=== PATIENT | female | born 1945 | race Caucasian/White ===

== ENCOUNTER 2023-09-28 13:00 | Emergency (ER) | payer MEDICARE, SELFPAY ==
[2023-09-28 13:15] VITALS: BP 175/91
[2023-09-28] MEDS: TYLENOL 650 MG PO (15:29)
[2023-09-28] MEDS: MOTRIN 600 MG PO (16:36)
--- NOTE | 2023-09-28 16:57 | ED.GENMED ---
History of Present Illness
General
Chief Complaint: Fall
Source: patient
Exam Limitations: none
Time Seen by Provider: 09/28/23 13:59
Nursing documentation reviewed up to this point in time: agreed with
Travel History
Have you had any contact with someone who has COVID-19?: No
Do you have any symptoms of coronavirus? Fever > 100 degrees, chills, cough, shortness of breath, sore throat, loss of taste or smell, muscle aches, or headache?: No
History of Present Illness
History of Present Illness:
77-year-old female with past medical history of hypertension hyperlipidemia, diabetes presenting to the emergency department today with concerns of fall. She claims that she came in for outpatient x-rays of her back because she was having ongoing
back and hip discomfort as an outpatient over the past few weeks. She claims that her right leg gave out and she fell hitting the front of her head also broke her fall with her arms. Initially had some bleeding but this was controlled prior to my
assessment. Denies loss of consciousness. Ongoing hip and back pain.
Past History
Past History
ED Past Medical History: HTN, Hypercholesterolemia and NIDDM
ED Past Surgical History: Cardiac and Cholecystectomy
Social History
Tobacco: Non-smoker
Alcohol: None
Drug: None
Personal: Single
Living: with family
Family History
Family History: Other (reviewed and non-contributory)
Review of Systems
Review of Systems
Allergies reviewed?: Yes
All Other Systems: ROS reviewed and negative except as documented in HPI and ROS
Phy Exam
Physical Exam
Physical Exam:
GENERAL: Alert , in no apparent distress
EYE: pupils equal and reactive
NECK: Supple, no significant adenopathy.
ENT: Superficial laceration abrasion to the right anterior forehead, roughly 1 cm in length surrounded by abrasion, o/p clr, mmm.
CARDIAC: Regular rate and rhythm .
LUNGS: Clear breath sounds bilaterally, no acute respiratory distress, no wheezes/rales/rhonchi
ABDOMEN: Soft, without focal tenderness, no r/g, no cvat
NEUROLOGICAL: Alert and oriented, no focal neuro deficits
SKIN: Warm and dry, skin intact.
MUSCULOSKELETAL: No edema, well perfused. Able to ambulate does have discomfort to the right hip when doing so.
PSYCH: Normal and appropriate interaction.
Course
Orders/Labs/Results
Orders:
Orders
09/28/23 14:50
CT Head W/o Iv Contrast Urgent
Comment:
Reason For Exam: fall hit head
Tetanus/Diphth/Acelpertussis [Adacel] 0.5 ml IM .ONCE ONE
Hip, Right 2-3 Views [CR Hip - RT w/wo Pel 2-3 Vw*] Urgent
Comment:
Reason For Exam: hip pain fall
Include a pelvis x-ray?: Yes
Lumbar Spine Complete, 4 View [CR Lumbar Spine Comp Min 4 Vw*] Urgent
Comment:
Reason For Exam: lbp fall
09/28/23 14:52
Acetaminophen [Tylenol] 650 mg PO NOW STA
09/28/23 16:31
Ibuprofen [Motrin] 600 mg .ROUTE .STK-MED ONE
09/28/23 16:35
Ibuprofen [Motrin] 600 mg PO NOW STA
09/28/23 17:54
Prednisone [Deltasone] 40 mg PO NOW STA
Vital Signs
Initial and Last Documented VS:
Initial Vital Signs
Temp Pulse Resp BP Pulse Ox
98.4 F 64 18 175/91 99
09/28/23 13:15 09/28/23 13:15 09/28/23 13:15 09/28/23 13:15 09/28/23 13:15
Last Documented Vital Signs
Temp Pulse Resp BP Pulse Ox
98.4 F 64 18 175/91 99
09/28/23 13:15 09/28/23 13:15 09/28/23 13:15 09/28/23 13:15 09/28/23 13:15
Procedures
Laceration Closure
Right Face:
Status of Wound: clean
Size of Wound in cm: 1
Description of Wound Edges: ragged and surrounded by abrasion
Preparation: cleaned with saline
Revision/Debridement: routine- no revision and irrigate-direct pressure
Wound exploration: explored to base- no FB and no tendon involvement
Type of Closure: Dermabond-skin glue
MDM/Problems Addressed
MDM/Problems Addressed:
77-year-old female presenting to the emergency department today with concerns of ground-level fall after her right hip gave out while walking into the hospital for outpatient x-rays. Has ongoing hip and back discomfort since. Also hit the right
forehead she denies any loss of consciousness. CT scan was performed that did not show any signs of intracranial injury no bleed. Superficial laceration to the right forehead was closed with Dermabond. X-rays without emergent findings. Patient
appears stable for outpatient follow-up with orthopedics. Return precautions given.
*Critical Care Note
Total Time (30-74mins, 75-104mins- exclusive of procedures): Not Applicable
ED Attending Note
-
Portions of this chart may have been created with voice recognition software.� Occasional wrong word or��sound alike� substitutions may have occurred due to the inherent limitations of voice recognition software.
Discharge Plan
Departure
Patient Disposition: Home (Routine Discharge)
Date of Disposition: 09/28/23
Time of Disposition: 17:54
Patient with high blood pressure during this ER visit?: No
Condition: Good
Covid-19: Not Applicable
Discharge Problem:
Acute hip pain, Fall, Forehead laceration
Instructions: Laceration Repair With Glue (DC)
Prescriptions:
New
meloxicam 7.5 mg tablet
7.5 mg PO DAILY 14 Days Qty: 14 0RF
prednisone 20 mg tablet
40 mg PO DAILY 3 Days Qty: 6 0RF
No Action
atorvastatin 10 mg Tablet
10 mg PO HS
metoprolol succinate 100 mg tablet extended release 24 hr
100 mg PO HS
therapeutic multivitamin Tablet
1 tab PO HS
ropinirole 0.5 mg Tablet
0.5 mg PO BID@1800,2200
naproxen sodium 220 mg Tablet
220 mg PO HS
lisinopril 40 mg tablet
40 mg PO HS
magnesium 200 mg Tablet
200 mg PO HS
eszopiclone 2 mg tablet
2 mg PO HS
trazodone 50 mg tablet
50 mg PO HSPRN PRN (Reason: insomnia)
metformin 500 mg Tablet
500 mg PO BID@0800,1700 Qty: 0 0RF
amlodipine 5 mg Tablet
5 mg PO DAILY Qty: 30 0RF
Referrals:
Alex London MD [Family Provider] -
Activity Restrictions/Additional Instructions:
You came to the emergency department today with concerns of hip and back discomfort also of skin injury to the right forehead. This was closed with Dermabond. Please keep the area clean and the Dermabond otherwise fall off on its own after a week
or so. Otherwise please take the prescribed medications help with symptoms. Follow-up closely with the orthopedic doctor. Return to the emergency department for any worsening, new or concerning symptoms.
Interventions
Interventions:
*Risk Screen - Suicide Last Done: 09/28/23 15:51
*General Assessment Last Done: 09/28/23 15:51
*Neglect/Abuse Screening Last Done: 09/28/23 15:51
*ED COVID-19 Vaccine History Last Done: 09/28/23 15:51
ED-Musculoskeletal Assessment Last Done: 09/28/23 15:51
ED- Neurological Assessment Last Done: 09/28/23 15:51
ED-Skin Assessment Last Done: 09/28/23 15:51
Discharge Date and Time
Print Language: GEORGIAN
[2023-09-28] MEDS: DELTASONE 40 MG PO (18:12)
[2023-09-28 18:28] VITALS: BP 157/91
== END 2023-09-28 18:34 | disposition home or self-care (01) ==
LOC: EMR 13:00
PROVIDERS: EMERGENCY PHYSICIAN Emergency Medicine; FAMILY PHYSICIAN Family Medicine
DX: S01.81XA Laceration without foreign body of other part of head, initial encounter (principal); M25.551 Pain in right hip; W19.XXXA Unspecified fall, initial encounter; I10 Essential (primary) hypertension; E78.00 Pure hypercholesterolemia, unspecified; E11.9 Type 2 diabetes mellitus without complications
CPT/HCPCS: 99284; 12011; 70450; 72110; 73502; 90715

== ENCOUNTER → 2023-11-08 13:23 | Outpatient (REF) | payer MEDICARE, SELFPAY | LOC: MRI 13:23 | PROVIDERS: ATTENDING PHYSICIAN Physician Assistant Surgical; FAMILY PHYSICIAN Family Medicine | DX: M54.50 Low back pain, unspecified (principal); M41.86 Other forms of scoliosis, lumbar region; M47.816 Spondylosis without myelopathy or radiculopathy, lumbar region; M43.16 Spondylolisthesis, lumbar region | CPT/HCPCS: 72148 ==

== ENCOUNTER 2023-11-29 01:56 | Emergency (ER) | payer MEDICARE, SELFPAY ==
--- NOTE | 2023-11-29 03:46 | ED.GENMED ---
History of Present Illness
<LOY Santiago - Last Filed: 11/29/23 06:42>
General
Chief Complaint: Abdominal Pain
Source: patient
Time Seen by Provider: 11/29/23 03:45
History of Present Illness
History of Present Illness:
78 year old female with hx of HTN, NIDDM, chronic lower back pain, with pacemaker who presents with sudden onset epigastric pain that began at 0100 tonight. Pt states the pain woke her up from sleep. She took tums x3 tabs because she thought it was
indigestion. Pain was initially 8/10 in strength, but currently 3/10. Pain is intermittent. Pain is described as a squeezing pain and radiates to the L back. She has not had this pain before. She has associated nausea and dizziness at onset. States
she had SOB initially. She states sitting forward makes the pain worse and causes dizziness. Reports having a [employer] hamburger at 1900 Monday. Last BM was yesterday and was loose. Denies vomiting, diarrhea, constipation, chest pain, SOB, head
ache, fevers/chills, dysuria, hematuria, increased belching.
Pt with pacemaker for an episode of syncope when her passed and due to generalized weakness.
Past History
<LOY Santiago - Last Filed: 11/29/23 06:42>
Past History
ED Past Medical History: HTN, Hypercholesterolemia and NIDDM
ED Past Surgical History: Cardiac and Cholecystectomy
Social History
Tobacco: Non-smoker
Alcohol: None
Drug: None
Personal: Single
Living: with family
Family History
Family History: Other (reviewed and non-contributory)
Review of Systems
<LOY Santiago - Last Filed: 11/29/23 06:42>
Review of Systems
Allergies reviewed?: Yes
All Other Systems: ROS reviewed and negative except as documented in HPI and ROS
Constitutional: Reports no symptoms
EENT: Reports no symptoms
Respiratory: Reports trouble breathing
Cardiac: Reports no symptoms
ABD/GI: Reports abdominal pain, nausea and vomiting
: Reports no symptoms
Musculoskeletal: Reports no symptoms
Skin: Reports no symptoms
Neurological: Reports dizzy and headache
Endocrine: Reports no symptoms
Hematologic/Lymphatic: Reports no symptoms
Psychiatric: Reports no symptoms
Phy Exam
<LOY Santiago - Last Filed: 11/29/23 06:42>
General Physical Exam
General Presentation: no apparent distress and other (uncomfortable appearing)
General age: appears stated age
General Skin: warm and dry
General Habitus: normal
General Mental: alert
General Hydration: appears well hydrated
Cardiovascular Exam
Cardiovascular Exam: regular rate/rhythm, no edema, no gallop and no murmur
Pulmonary Exam
Pulmonary Exam: lungs clear, no respiratory distress, no rales, no crackles, no rhonchi, no wheezing and no cough
Gastrointestinal Exam
Gastrointestinal Exam: normal bowel sounds, no pulsatile mass and distended (mild)
Palpation: left upper quadrant: Moderate tenderness and left lower quadrant: Moderate tenderness
Skin Exam
Skin Exam: normal color and warm/dry
Psychiatric Exam
Psychiatric Exam: normal mood/affect
Course
<LOY Santiago - Last Filed: 11/29/23 06:42>
Orders/Labs/Results
Orders:
Orders
11/29/23
Electrocardiogram (*1) Stat
Reason for Study: Chest Pain
11/29/23 03:00
Complete Blood Count/With Diff Routine
Comprehensive Metabolic Panel Routine
Lactic Acid Routine
Lipase Routine
PTT Routine
Prothrombin Time Routine
Troponin I Routine
Urinalysis Reflex To Culture Routine
Urine Microscopic Reflex Cult Routine
Urine Culture Routine
REJI Source: U
Specimen Description:
11/29/23 04:16
CT Abd/pelvis W Iv Cont Urgent
Comment:
Reason For Exam: upper abd pain
11/29/23 06:21
EKG [Electrocardiogram (*1)] Urgent
Reason for Study: Chest Pain
11/29/23 06:34
Troponin I Urgent
11/29/23 06:50
Fosfomycin [Monurol] 3 gm PO ONCE ONE
Abnormal Lab Results
11/29/23
03:00
RBC 3.79 L 10^6/uL
(4.20-5.40)
Hgb 11.8 L g/dL
(12.0-16.0)
Hct 36.1 L %
(37.0-47.0)
MCH 31.1 H pg
(27.0-31.0)
MCHC 32.7 L g/dL
(33.0-37.0)
MPV 12.6 H fL
(7.4-10.4)
Absolute Monos (auto) 0.7 H 10^3/uL
(0.1-0.6)
BUN 55 H mg/dl
(7-17)
Glucose 156 H mg/dl
(70-99)
AST 215 H U/L
(14-36)
ALT 144 H U/L
(0-35)
Lipase 360 H U/L
(23-300)
Urine Nitrite (Reflex) Positive A
(Negative)
Leukocyte Esterase Rfl 2+ A
(Negative)
Urine WBC (Reflex) 21-25 A /HPF
(0-5)
Urine Bacteria (Reflex) Many A
(Negative)
11/29/23 03:00
11/29/23 03:00
Vital Signs
Initial and Last Documented VS:
Initial Vital Signs
Pulse Ox
94
11/29/23 04:32
Last Documented Vital Signs
Pulse Resp BP Pulse Ox
67 14 160/82 98
11/29/23 05:53 11/29/23 05:53 11/29/23 05:53 11/29/23 05:53
<Chun Humphrey, DO - Last Filed: 11/29/23 07:53>
Orders/Labs/Results
Orders:
Orders
11/29/23
Electrocardiogram (*1) Stat
Reason for Study: Chest Pain
11/29/23 03:00
Complete Blood Count/With Diff Routine
Comprehensive Metabolic Panel Routine
Lactic Acid Routine
Lipase Routine
PTT Routine
Prothrombin Time Routine
Troponin I Routine
Urinalysis Reflex To Culture Routine
Urine Microscopic Reflex Cult Routine
Urine Culture Routine
REJI Source: U
Specimen Description:
11/29/23 04:16
CT Abd/pelvis W Iv Cont Urgent
Comment:
Reason For Exam: upper abd pain
11/29/23 06:21
EKG [Electrocardiogram (*1)] Urgent
Reason for Study: Chest Pain
11/29/23 06:34
Troponin I Urgent
11/29/23 06:50
Fosfomycin [Monurol] 3 gm PO ONCE ONE
Abnormal Lab Results
11/29/23
03:00
RBC 3.79 L 10^6/uL
(4.20-5.40)
Hgb 11.8 L g/dL
(12.0-16.0)
Hct 36.1 L %
(37.0-47.0)
MCH 31.1 H pg
(27.0-31.0)
MCHC 32.7 L g/dL
(33.0-37.0)
MPV 12.6 H fL
(7.4-10.4)
Absolute Monos (auto) 0.7 H 10^3/uL
(0.1-0.6)
BUN 55 H mg/dl
(7-17)
Glucose 156 H mg/dl
(70-99)
AST 215 H U/L
(14-36)
ALT 144 H U/L
(0-35)
Lipase 360 H U/L
(23-300)
Urine Nitrite (Reflex) Positive A
(Negative)
Leukocyte Esterase Rfl 2+ A
(Negative)
Urine WBC (Reflex) 21-25 A /HPF
(0-5)
Urine Bacteria (Reflex) Many A
(Negative)
11/29/23 03:00
11/29/23 03:00
Vital Signs
Initial and Last Documented VS:
Initial Vital Signs
Pulse Ox
94
11/29/23 04:32
Last Documented Vital Signs
Pulse Resp BP Pulse Ox
67 14 160/82 98
11/29/23 05:53 11/29/23 05:53 11/29/23 05:53 11/29/23 05:53
<LOY Santiago - Last Filed: 11/29/23 06:42>
MDM/Problems Addressed
Differential Diagnosis Includes:
pancreatitis, gastritis, choledocholithiasis, ulcer, SBO, ACS
MDM/Problems Addressed:
78 year old female who presents with epigastric pain radiating to the back that began at 0100 tonight.
Chronic conditions affecting care: DM, HTN, Arrhythmia and Previous abdomnial surgery
<LOY Santiago - Last Filed: 11/29/23 06:42>
*Critical Care Note
Total Time (30-74mins, 75-104mins- exclusive of procedures): Not Applicable
<Chun Humphrey DO - Last Filed: 11/29/23 07:53>
Update Note
Update Note:
CT abdomen and pelvis with IV contrast
IMPRESSION:
Stomach decompressed. No bowel obstruction or diverticulitis. Appendix is not visualized.
Mild cardiomegaly. Status post cholecystectomy. No pancreatitis. No obstructing renal stone. Rule abdominal aorta is of normal caliber with diffuse atherosclerotic disease.
ED Attending Note
<LOY Santiago - Last Filed: 11/29/23 06:42>
-
Portions of this chart may have been created with voice recognition software.� Occasional wrong word or��sound alike� substitutions may have occurred due to the inherent limitations of voice recognition software.
<Chun Humphrey DO - Last Filed: 11/29/23 07:53>
ED Attending Note
Patient seen and examined by attending physician: Yes
I performed the substantive portion of visit, reviewed & personally made and approve the management plan that is documented in note by myself or GUS.: Yes
ED Attending Note:
Pleasant 78-year-old female that presents with epigastric pain. This pain awakened her from sleep around 1 in the morning. She did try taking an antacid [id number] without any relief. Initially pain was severe and accompanied by shortness
of breath. She rated her pain at 8 out of 10 initially but states that upon arrival to the emergency department her pain is 3 out of 10. Patient denies nausea, vomiting, diarrhea, constipation. Patient states that she had a loose bowel movement
yesterday. Patient was seen in conjunction with the PA student. I have reviewed and agree with the history and treatment plan presented. On my independent physical exam, patient is awake, alert, and oriented x3
Discharge Plan
Departure
Patient Disposition: Home (Routine Discharge)
Date of Disposition: 11/29/23
Time of Disposition: 07:42
Patient with high blood pressure during this ER visit?: Yes
Condition: Good
Discharge Problem:
Abdominal pain, Acute UTI
Instructions: Urinary Tract Infection, Adult ED, BLOOD PRESSURE
Prescriptions:
No Action
atorvastatin 10 mg Tablet
10 mg PO HS
metoprolol succinate 100 mg tablet extended release 24 hr
100 mg PO HS
therapeutic multivitamin Tablet
1 tab PO HS
ropinirole 0.5 mg Tablet
0.5 mg PO BID@1800,2200
naproxen sodium 220 mg Tablet
220 mg PO HS
lisinopril 40 mg tablet
40 mg PO HS
magnesium 200 mg Tablet
200 mg PO HS
eszopiclone 2 mg tablet
2 mg PO HS
trazodone 50 mg tablet
50 mg PO HSPRN PRN (Reason: insomnia)
metformin 500 mg Tablet
500 mg PO BID@0800,1700 Qty: 0 0RF
amlodipine 5 mg Tablet
5 mg PO DAILY Qty: 30 0RF
meloxicam 7.5 mg tablet
7.5 mg PO DAILY 14 Days Qty: 14 0RF
prednisone 20 mg tablet
40 mg PO DAILY 3 Days Qty: 6 0RF
Referrals:
Lorrie Naik, [Active] - As needed
Alex London MD [Family Provider] -
Activity Restrictions/Additional Instructions:
It was a pleasure meeting you and taking part in your care. We hope for your continued healing and wellness.
Please read discharge instructions in their entirety. However, they are for general education and may not describe your exact diagnosis at discharge. Information on your ER visit and medical conditions were discussed with you along with appropriate
follow up information...
If indicated, please take your medications as instructed and indicated on discharge paperwork.
Please schedule a follow up appointment as directed. Call to schedule an appointment
Please return to the emergency department with ANY change in, persisting, or worsening of symptoms. If any of your symptoms do not improve, or persist, or become more severe within 6-12 hours, please return to the emergency department for further
care.
Please return to the emergency department if you develop a headache, neck pain/stiffness, fever greater than 100.4F, chest pain, shortness of breath, persistent nausea, vomiting, slurred speech, difficulty walking, numbness/tingling, weakness, signs
of infection or any other symptoms that are worrisome to you.
If you have any questions or concerns please do not hesitate to call the Hospital at or E-mail me directly at [email or web address]
Interventions
Interventions:
*General Assessment Last Done: 11/29/23 04:32
ED- Fall Risk Assessment Last Done: 11/29/23 04:32
*ED COVID-19 Vaccine History Last Done: 11/29/23 04:32
[id number] Assessment Last Done: 11/29/23 04:32
Discharge Date and Time
Print Language: SAUDI ARABIAN
--- NOTE | 2023-11-29 03:47 | DOWNTIME ---
There was a [employer] Downtime on 10/24/2023 from 0100 to 10/25/2023 at 0338. Downtime documentation of patient's care, including medication administrations, has been reconciled in the electronic record per guidelines. Refer to the
patient's paper chart under the miscellaneous tab to see printed paper medication records and downtime forms.
[2023-11-29 03:55] LABS: ALT (SGPT) 144 U/L (0-35); AST (SGOT) 215 U/L (14-36); Alkaline Phosphatase 104 U/L (38-126); Blood Urea Nitrogen 55 mg/dl (7-17); Calcium 9.9 mg/dl (8.4-10.2); Carbon Dioxide 26 mmol/L (22-30); Chloride 105 mmol/L (98-107); Glucose 156 mg/dl (70-99); Lactic Acid 1.8 mmol/L (0.7-2.0); Lipase 360 U/L (23-300); Potassium 4.1 mmol/L (3.5-5.1); Sodium 140 mmol/L (135-145); Total Protein 6.3 g/dl (6.3-8.2); Troponin I 0.016 ng/ml; eGFR 56.95
[2023-11-29 03:59] LABS: % Basophils 0.6 % (0-2); % Eosinophils 3.3 % (0-6); % Immature Granulocytes 0.2 % (0-0.5); % Lymphocytes 34.5 % (20.5-51.1); % Monocytes 8.7 % (1.7-9.3); % Neutrophils 52.7 % (42.2-75.2); Absolute Basophils 0.1 10^3/uL (0-0.2); Absolute Eosinophils 0.3 10^3/uL (0-0.7); Absolute Lymphocytes 2.8 10^3/uL (1.2-3.4); Absolute Monocytes 0.7 10^3/uL (0.1-0.6); Absolute Neutrophils 4.3 10^3/uL (1.4-6.5); Hematocrit 36.1 % (37.0-47.0); Hemoglobin 11.8 g/dL (12.0-16.0); Mean Corp Hgb Conc. 32.7 g/dL (33.0-37.0); Mean Corpuscular Hgb 31.1 pg (27.0-31.0); Mean Corpuscular Volume 95.3 fL (81.0-99.0); Mean Platelet Volume 12.6 fL (7.4-10.4); Nucleated Red Blood Cells % 0 %; Platelet Count 173 10^3/uL (130-400); Red Blood Cell Count 3.79 10^6/uL (4.20-5.40); White Blood Cell Count 8.2 10^3/uL (4.8-10.8)
[2023-11-29 04:04] LABS: Urine Character Clear (Clear); Urine Color Yellow; Urine Leukocyte 2+ (Negative)
[2023-11-29 04:05] LABS: Urine Albumin Negative (Neg - Trace); Urine Bilirubin Negative (Negative); Urine Glucose Negative (Negative); Urine Ketone Negative (Negative); Urine Nitrite Positive (Negative); Urine Occult Blood Negative (Negative); Urine Urobilinogen Negative (Neg - 1+)
[2023-11-29 04:06] LABS: Urine Bacteria Many (Negative); Urine Hyaline Cast 0-2 /LPF (0-2); Urine Red Blood Cell 0-2 /HPF (0-2); Urine Squamous Cell 21-25 /LPF (Few); Urine White Cell 21-25 /HPF (0-5)
[2023-11-29 04:07] LABS: INR 1.01; PT 13.1 Sec (11.4-14.6)
[2023-11-29 04:52] VITALS: BMI 31.8
[2023-11-29 04:53] VITALS: BP 154/80
[2023-11-29 05:53] VITALS: BP 160/82
[2023-11-29] MEDS: MONUROL 3 GM PO (07:05)
[2023-11-29 07:11] LABS: Troponin I 0.015 ng/ml
[2023-11-30 07:54] LABS: Glucose - Point of Care 161 mg/dl (70-99)
== END 2023-11-29 08:29 | disposition home or self-care (01) ==
LOC: EMR 01:56
PROVIDERS: EMERGENCY PHYSICIAN Student in an Organized Health Care Education/Training Program; FAMILY PHYSICIAN Family Medicine
DX: N39.0 Urinary tract infection, site not specified (principal); R10.13 Epigastric pain; R11.2 Nausea with vomiting, unspecified; R42 Dizziness and giddiness; R06.02 Shortness of breath; R51.9 Headache, unspecified; R19.7 Diarrhea, unspecified; I10 Essential (primary) hypertension; E11.9 Type 2 diabetes mellitus without complications; G89.29 Other chronic pain; M54.50 Low back pain, unspecified; E78.00 Pure hypercholesterolemia, unspecified; Z79.84 Long term (current) use of oral hypoglycemic drugs; Z95.0 Presence of cardiac pacemaker; Z90.49 Acquired absence of other specified parts of digestive tract; Z88.1 Allergy status to other antibiotic agents
CPT/HCPCS: 99285; 74177; 80053; 81003; 81015; 82962; 83605; 83690; 84484; 85025; 85610; 85730; 87077; 87086; 93005; Q9967

== ENCOUNTER 2024-09-25 18:04 | Emergency (ER) | payer MEDICARE, SELFPAY ==
[2024-09-25 18:04] VITALS: BMI 30.7
[2024-09-25 18:09] VITALS: BP 202/109
[2024-09-25 20:00] VITALS: BP 161/74
--- NOTE | 2024-09-25 20:19 | ED.GENMED ---
History of Present Illness
General
Chief Complaint: Fall
Source: patient
Exam Limitations: none
Time Seen by Provider: 09/25/24 20:09
History of Present Illness
History of Present Illness:
78yo right hand dominant female with a history of hypertension, hyperlipidemia, and pacemaker presenting with her daughter for evaluation of a left shoulder injury that occurred around 5pm this evening. Patient tripped and grabbed onto a railing
with her left arm. She states her arm bend backwards and she felt a pop. She did not actually fall. No head strike or LOC. She has been unable to move her shoulder since then. She also reports some paresthesias in her fingers.
Past History
Past History
ED Past Medical History: HTN, Hypercholesterolemia and NIDDM
ED Past Surgical History: Cardiac and Cholecystectomy
Social History
Tobacco: Non-smoker
Alcohol: None
Drug: None
Personal: Single
Living: with family
Family History
Family History: Other (reviewed and non-contributory)
Phy Exam
General Physical Exam
General Presentation: well appearing and no apparent distress
General age: appears stated age
General Skin: warm and dry
General Habitus: normal
General Mental: alert
ENT Exam
ENT Exam: normocephalic
Pulmonary Exam
Pulmonary Exam: no respiratory distress
Neurological Exam
Neurological Exam: alert
Ha Coma Scale
Eye Opening: Spontaneous
Verbal Response: Oriented
Motor Response: Obeys Commands
GCS Total Score: 15
Musculoskeletal Exam
Musculoskeletal Exam: other (L shoulder: Arm held in flexion and adduction. No deformity noted. +Tenderness to humerus. Unable to range shoulder/elbow due to pain. ROM of wrist intact. Compartments soft. 2+ radial pulse. Motor function intact in
radial, ulnar, and median nerve distributions. )
Skin Exam
Skin Exam: normal color and warm/dry
Psychiatric Exam
Psychiatric Exam: anxious
Course
Orders/Labs/Results
Orders:
Orders
09/25/24 18:13
CR Shoulder, Trauma - Left Urgent
Reason For Exam: injury
09/25/24 20:17
Ice Pack-Treatment DIRECTED
Location: L arm
Sling Left-Treatment ONCE
Oxycodone/Acetaminophen [Percocet 5/325] 1 tablet PO NOW STA
CR Humerus - Left Min 2 Views* Urgent
Comment:
Reason For Exam: injury
Vital Signs
Initial and Last Documented VS:
Initial Vital Signs
Temp Pulse Resp BP Pulse Ox
98.2 F 89 20 202/109 98
09/25/24 18:09 09/25/24 18:09 09/25/24 18:09 09/25/24 18:09 09/25/24 18:09
Last Documented Vital Signs
Temp Pulse Resp BP Pulse Ox
98.2 F 65 18 138/74 99
09/25/24 18:09 09/25/24 22:00 09/25/24 22:00 09/25/24 22:00 09/25/24 22:00
MDM/Problems Addressed
Differential Diagnosis Includes:
78yoF here with a L shoulder injury. [place] a pop after grabbing onto a railing. Now unable to range shoulder joint. No deformity on exam and compartments are soft. LUE is neurovascularly intact. Differential diagnosis includes: fracture, dislocation,
rotator cuff injury, muscular injury
X-rays of shoulder obtained in triage are negative for acute osseous abnormalities. Humerus x-rays added which are also negative. She was placed in a sling with improvement in her pain. Supportive care discussed. Advised f/u with orthopedics for
further care. She was encouraged to attempt to range shoulder to help prevent adhesive capsulitis. Patient discharged in stable condition with her daughter.
*Critical Care Note
Total Time (30-74mins, 75-104mins- exclusive of procedures): Not Applicable
ED Attending Note
-
Portions of this chart may have been created with voice recognition software.� Occasional wrong word or��sound alike� substitutions may have occurred due to the inherent limitations of voice recognition software.
Discharge Plan
Departure
Patient Disposition: Home (Routine Discharge)
Date of Disposition: 09/25/24
Time of Disposition: 21:50
Patient with high blood pressure during this ER visit?: Yes
Discharge Problem:
Injury of left shoulder
Instructions: Shoulder pain - ED discharge instructions
Prescriptions:
No Action
atorvastatin 10 mg Tablet
10 mg PO HS
metoprolol succinate 100 mg tablet extended release 24 hr
100 mg PO HS
therapeutic multivitamin Tablet
1 tab PO HS
ropinirole 0.5 mg Tablet
0.5 mg PO BID@1800,2200
naproxen sodium 220 mg Tablet
220 mg PO HS
lisinopril 40 mg tablet
40 mg PO HS
magnesium 200 mg Tablet
200 mg PO HS
eszopiclone 2 mg tablet
2 mg PO HS
trazodone 50 mg tablet
50 mg PO HSPRN PRN (Reason: insomnia)
metformin 500 mg Tablet
500 mg PO BID@0800,1700 Qty: 0 0RF
amlodipine 5 mg Tablet
5 mg PO DAILY Qty: 30 0RF
meloxicam 7.5 mg tablet
7.5 mg PO DAILY 14 Days Qty: 14 0RF
prednisone 20 mg tablet
40 mg PO DAILY 3 Days Qty: 6 0RF
Referrals:
Jon Cortez MD [Active] -
UNKNOWN - PT DOES,NOT KNOW [Family Provider] -
Activity Restrictions/Additional Instructions:
Wear sling for comfort. Apply ice to affected area. Take Tylenol as needed for pain.
Please call tomorrow to schedule follow-up with orthopedics.
Interventions
Interventions:
*Risk Screen - Suicide Last Done: 09/25/24 20:12
*General Assessment Last Done: 09/25/24 18:09
*Neglect/Abuse Screening Last Done: 09/25/24 20:12
*ED- Fall Risk Assessment Last Done: 09/25/24 20:12
*Nursing Disposition Last Done: 09/25/24 22:00
ED-Musculoskeletal Assessment Last Done: 09/25/24 20:12
ED- Neurological Assessment Last Done: 09/25/24 20:12
ED-Skin Assessment Last Done: 09/25/24 20:12
Discharge Date and Time
Discharge Date/Time: 09/25/24 22:11
Print Language: WELSH
[2024-09-25] MEDS: PERCOCET 5/325 1 TABLET PO (20:43)
[2024-09-25 22:00] VITALS: BP 138/74
== END 2024-09-25 22:11 | disposition home or self-care (01) ==
LOC: EMR 18:04
PROVIDERS: EMERGENCY PHYSICIAN Emergency Medicine
DX: S49.92XA Unspecified injury of left shoulder and upper arm, initial encounter (principal); R20.2 Paresthesia of skin; W01.0XXA Fall on same level from slipping, tripping and stumbling without subsequent striking against object, initial encounter; E11.9 Type 2 diabetes mellitus without complications; E78.00 Pure hypercholesterolemia, unspecified; I10 Essential (primary) hypertension; Z90.49 Acquired absence of other specified parts of digestive tract; Z95.0 Presence of cardiac pacemaker
CPT/HCPCS: 99283; 73030; 73060